=== PATIENT | male | born 1985 | race Caucasian/White ===

== ENCOUNTER 2017-12-06 14:45 | Emergency (ER) | payer BC ==
[2017-12-06 14:45] VITALS: BMI 33.9
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
[2017-12-06 15:14] VITALS: BP 121/93; PULSE 94; RESP 16; TEMP 98.9; O2SAT 97
== END 2017-12-06 15:35 | disposition home or self-care (01) ==
LOC: ED 14:45
DX: Z48.817 Encounter for surgical aftercare following surgery on the skin and subcutaneous tissue (principal)